=== PATIENT | male | born 1990 | race Asian ===

== ENCOUNTER 2020-03-23 10:22 | Inpatient (IN) | payer SELFPAY ==
--- NOTE | 2020-03-23 12:14 | ER Document Report ---
Entered by AMIRAH CHIN SCRIBE 03/23/20 1133 Acting as scribe for:TOBY FAM MD ED General - General Chief Complaint: Diarrhea Stated Complaint: COUGH,DIARRHEA,HEADACHE Time Seen by Provider: 03/23/20 11:32 Mode of Arrival: Ambulatory Information source: Patient Notes: This 30 year old male patient presents to the ED today for evaluation of symptoms related to COVID-19. Patient reports that he started having symptoms including intermittent fevers, dyspnea on exertion, nonproductive cough, diarrhea TID, and body aches on 03/14, was tested on 03/21 at a local testing site, and was notified of positive results yesterday. He states that the dyspnea and cough have been worse the past x2-3 days. He also notes decreased PO intake due to loss of taste and smell. Denies vomiting. He has only been taking Tylenol and Nyquil for his symptoms per nursing. Denies any past medical/surgical history, medications, or allergies. He admits to vaping, but denies use of tobacco, ETOH, or recreational drugs. 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 Lives with: Spouse/Significant other Family History: Reviewed & Not Pertinent Patient has suicidal ideation: No Patient has homicidal ideation: No - Medical History Medical History: Negative Surgical Hx: Negative Review of Systems - Review of Systems Constitutional: See HPI, Fever, Recent illness - COVID + 03/22 EENT: See HPI, Other - Loss of taste and smell Cardiovascular: See HPI, Dyspnea Respiratory: See HPI, Cough Gastrointestinal: See HPI, Diarrhea, Poor appetite, Poor fluid intake Genitourinary: No symptoms reported Male Genitourinary: No symptoms reported Musculoskeletal: See HPI, Muscle pain Skin: No symptoms reported, Change in color Neurological/Psychological: No symptoms reported -: Yes All other systems reviewed and negative Physical Exam - Vital signs Vitals: Temp Pulse Resp BP Pulse Ox 102.7 F H 85 22 H 102/52 L 93 03/23/20 10:31 03/23/20 10:31 03/23/20 10:31 03/23/20 10:31 03/23/20 10:31 - General General appearance: Alert In distress: None - HEENT Head: Normocephalic, Atraumatic Eyes: Normal Pupils: PERRL - Respiratory Respiratory status: Tachypnea Chest status: Nontender Breath sounds: Other - Coarse breath sounds. No: Rhonchi, Wheezing Chest palpation: Normal - Cardiovascular Rhythm: Regular, Tachycardia Heart sounds: Normal auscultation Murmur: No Friction rub: No Gallop: None auscultated - Abdominal Inspection: Normal Distension: No distension Bowel sounds: Normal Tenderness: Nontender - Abdomen soft Organomegaly: No organomegaly - Back Back: Normal, Nontender - Extremities General upper extremity: Normal inspection General lower extremity: Normal inspection. No: Edema - Neurological Neuro grossly intact: Yes Orientation: AAOx4 [place] Coma Scale Eye Opening: Spontaneous [place] Coma Scale Verbal: Oriented Jake Coma Scale Motor: Obeys Commands [place] Coma Scale Total: 15 - Psychological Associated symptoms: Normal affect, Normal mood - Skin Skin Temperature: Warm Skin Moisture: Dry Skin Color: Normal Course - Re-evaluation Re-evalutation: 03/23/20 14:44 The patient was evaluated during the global COVID-19 pandemic and that diagnosis was suspected/considered upon their initial presentation. Their evaluation, treatment and testing was consistent with current guidelines for patients who present with complaints or symptoms that may be related to COVID-19. - Vital Signs Vital signs: Temp Pulse Resp BP Pulse Ox 101.7 F H 87 20 117/66 96 03/23/20 15:45 03/23/20 14:37 03/23/20 14:37 03/23/20 14:37 03/23/20 14:37 - Laboratory Result Diagrams: 03/23/20 13:42 03/23/20 13:42 Laboratory results interpreted by me: 03/23/20 03/23/20 03/23/20 13:42 13:42 13:42 Seg Neutrophils % 82.1 H D-Dimer 0.90 H Carbonic Acid ABG pH ABG pCO2 ABG pO2 ABG HCO3 ABG O2 Saturation Sodium 136.6 L Calcium 8.3 L Magnesium 2.5 H Ferritin 987.00 H AST 76 H Lactate Dehydrogenase Creatine Kinase 1414 H C-Reactive Protein 53.7 H Urine Protein Urine Ketones Urine Blood 03/23/20 03/23/20 03/23/20 13:42 14:08 14:47 Seg Neutrophils % D-Dimer Carbonic Acid 1.46 H ABG pH 7.34 L ABG pCO2 48.6 H ABG pO2 23.4 L* ABG HCO3 25.4 H ABG O2 Saturation 37.2 L Sodium Calcium Magnesium Ferritin AST Lactate Dehydrogenase 617 H Creatine Kinase C-Reactive Protein Urine Protein >=500 H Urine Ketones 20 H Urine Blood MODERATE H - Diagnostic Test Radiology reviewed: Image reviewed, Reports reviewed - Bilateral lower lobe airspace disease - EKG Interpretation by Ia EKG shows normal: Sinus rhythm, [place], Intervals, QRS Complexes. abnormal: ST-T Waves - Diffuse nonspecific T abnormalities Rate: Normal - 86 Rhythm: NSR - Consults Dr. Jones Time consulted: 16:07 Consulted provider: will come to ER Discharge - Discharge Clinical Impression: Pneumonia due to 2019 novel coronavirus, Hypoxia, Rhabdomyolysis due to COVID- 19, Myoglobinuria Fever Qualifiers: Fever type: unspecified Qualified Code(s): R50.9 - Fever, unspecified Condition: Good Disposition: ADMITTED INPATIENT Admitting Provider: Karen (Hospitalist) Unit Admitted: IMCU I personally performed the services described in the documentation, reviewed and edited the documentation which was dictated to the scribe in my presence, and it accurately records my words and actions.
--- NOTE | 2020-03-23 13:17 | RADIOLOGY REPORT (SQ) ---
EXAM DESCRIPTION: CHEST SINGLE VIEW IMAGES COMPLETED DATE/TIME: 03/23/2020 12:29 pm REASON FOR STUDY: Dyspnea, febrile, COVID positive COMPARISON: None. EXAM PARAMETERS: NUMBER OF VIEWS: One view. TECHNIQUE: Single frontal radiographic view of the chest acquired. RADIATION DOSE: NA LIMITATIONS: None. FINDINGS: LUNGS AND PLEURA: Ill-defined patchy opacification in the lung bases. No pleural effusion . No mass. MEDIASTINUM AND HILAR STRUCTURES: No masses. Contour normal. HEART AND VASCULAR STRUCTURES: Heart normal in size. Normal vasculature. BONES: No acute findings. HARDWARE: None in the chest. OTHER: No other significant finding. IMPRESSION: Bilateral airspace disease consistent with the given history of COVID-19. TECHNICAL DOCUMENTATION: JOB ID: [id number] 2010 [employer]- All Rights Reserved Reading location - IP/workstation name: [email or web address]
[2020-03-23 14:00] LABS: ABSOLUTE LYMPHOCYTES (AUTO) 0.6 10^3/uL (0.5-4.7); ABSOLUTE MONOCYTES (AUTO) 0.2 10^3/uL (0.1-1.4); ABSOLUTE NEUT (AUTO) 3.5 10^3/uL (1.7-8.2); BASOPHILS % (AUTO) 0.2 % (0-2); HEMATOCRIT 45.8 % (37.9-51.0); HEMOGLOBIN 15.8 g/dL (13.5-17.0); LYMPHOCYTES % (AUTO) 13.5 % (13-45); MEAN CORPUSCULAR HEMOGLOBIN 30.1 pg (27.0-33.4); MEAN CORPUSCULAR HGB CONC 34.4 g/dL (32.0-36.0); MEAN CORPUSCULAR VOLUME 87 fl (80-97); MONOCYTES % (AUTO) 4.2 % (3-13); PLATELET COUNT 184 10^3/uL (150-450); RED BLOOD COUNT 5.25 10^6/uL (4.35-5.55); RED CELL DISTRIBUTION WIDTH 13.4 % (11.5-14.0); SEGMENTED NEUTROPHILS % (AUTO) 82.1 % (42-78); TOTAL CELLS COUNTED % (AUTO) 100 %; WHITE BLOOD COUNT 4.3 10^3/uL (4.0-10.5)
[2020-03-23 14:21] LABS: ALBUMIN 4.1 g/dL (3.5-5.0); ALKALINE PHOSPHATASE 40 U/L (38-126); ANION GAP 11 (5-19); ASPARTATE AMINO TRANSFERASE 76 U/L (17-59); BILIRUBIN,DIRECT 0.3 mg/dL (0.0-0.4); BILIRUBIN,TOTAL 0.7 mg/dL (0.2-1.3); BLOOD UREA NITROGEN 17 mg/dL (7-20); C-REACTIVE PROTEIN 53.7 mg/L (<10.0); CALCIUM 8.3 mg/dL (8.4-10.2); CARBON DIOXIDE 26 mmol/L (22-30); CHLORIDE 100 mmol/L (98-107); CREATINE KINASE 1414 U/L (55-170); GLUCOSE 102 mg/dL (75-110); POTASSIUM 3.9 mmol/L (3.6-5.0); TOTAL PROTEIN 7.5 g/dL (6.3-8.2)
[2020-03-23 14:29] LABS: ARTERIAL BLOOD BASE EXCESS -1.1 mmol/L; ARTERIAL BLOOD H2CO3 1.46 mmol/L (1.05-1.35); ARTERIAL BLOOD HCO3 25.4 mmol/L (20-24); ARTERIAL BLOOD O2 SATURATION 37.2 % (94-98); ARTERIAL BLOOD PCO2 48.6 mmHg (35-45); ARTERIAL BLOOD PH 7.34 (7.35-7.45); ARTERIAL BLOOD TOTAL CO2 26.9 mmol/L (23-27)
[2020-03-23 14:34] LABS: ARTERIAL BLOOD FIO2 ROOM AIR
[2020-03-23 14:37] LABS: ARTERIAL BLOOD PO2 23.4 mmHg (80-100)
[2020-03-23] MEDS ORDERED: ACETAMINOPHEN 325 MG TABLET PO ONE (14:41)
[2020-03-23 15:11] LABS: APPEARANCE,URINE SLIGHTLY-CLOUDY; BILIRUBIN,URINE NEGATIVE (NEGATIVE); COLOR,URINE YELLOW; GLUCOSE, URINE NEGATIVE (NEGATIVE); KETONES,URINE 20 mg/dL (NEGATIVE); LEUKOCYTE ESTERASE,URINE NEGATIVE (NEGATIVE); NITRITE,URINE NEGATIVE (NEGATIVE); PROTEIN,URINE >=500 mg/dL (NEGATIVE); URINE SPECIFIC GRAVITY 1.027; UROBILINOGEN,URINE NEGATIVE mg/dL (<2.0)
[2020-03-23] MEDS: RINGERS SOLUTION,LACTATED 1,000 ML IV PRN ×2 (15:33→20:45)
[2020-03-23] MEDS ORDERED: IPRATROPIUM/ALBUTEROL 0.5-2.5 MG/3 ML AMPUL NEB PRN (17:30)
[2020-03-23] MEDS ORDERED: ACETAMINOPHEN 325 MG TABLET PO PRN (17:30)
[2020-03-23] MEDS ORDERED: TEMAZEPAM 7.5 MG CAPSULE PO PRN (17:30)
[2020-03-23] MEDS ORDERED: ONDANSETRON HCL INJ/PF 4 MG/2 ML SDV IV PRN (17:30)
[2020-03-23] MEDS ORDERED: PROMETHAZINE HCL INJ 25 MG/1 ML VIAL IV PRN (17:30)
--- NOTE | 2020-03-23 18:11 | PDOC H&P ---
History of Present Illness Admission Date/PCP: 03/23/20 16:45 History of Present Illness: CHALINO KRUEGER is a 30 year old male no significant past medical history, who has a vaping shop and also vaping himself, presenting to ED complaining of worsening shortness of breath. Patient is stating that about 10 days ago he was febrile and thought he had COVID-19 and he started isolating himself, as his symptoms did not improve he called [facility] and he was instructed to get tested for COVID-19. Patient got tested for COVID-19 3 days ago which came back positive yesterday. Patient complaining of worsening shortness of breath, associated with loss of smell and loss of taste, low appetite, nonproductive cough, pleuritic chest pain, and subjective fever, nonbloody diarrhea, denies any headache, focal neurological symptoms urinary symptoms. In ED chest x-ray was positive for COVID-19 findings, D-dimer mildly elevated, severely elevated ferritin, LDH, CRP and CK. Normal troponin. An ABG was attempted but turned out to be a VBG with pH of 7.34, PCO2 48.6, PO2 23.4. Social History Lives with: Spouse/Significant other Smoking Status: Never Smoker Family History Family History: Reviewed & Not Pertinent Parental Family History Reviewed: Yes Children Family History Reviewed: Yes Sibling(s) Family History Reviewed.: Yes Medication/Allergy Allergies/Adverse Reactions: No Known Allergies Allergy (Unverified 03/23/20 14:53) Review of Systems Review of Systems: as per hpi Physical Exam Vital Signs: Temp Pulse Resp BP Pulse Ox 99.9 F 86 20 111/58 L 97 03/23/20 16:38 03/23/20 16:38 03/23/20 16:38 03/23/20 16:38 03/23/20 16:38 Intake & Output 03/22/20 03/23/20 03/24/20 06:59 06:59 06:59 Intake Total 1000 Balance 1000 Weight 75.75 kg General appearance: PRESENT: mild distress, well-developed, well-nourished Head exam: PRESENT: atraumatic, normocephalic Respiratory exam: PRESENT: clear to auscultation jensen, tachypnea. ABSENT: rales, rhonchi, wheezes Cardiovascular exam: PRESENT: RRR. ABSENT: diastolic murmur, rubs, systolic murmur GI/Abdominal exam: PRESENT: normal bowel sounds, soft. ABSENT: distended, guarding, mass, organolmegaly, rebound, tenderness Neurological exam: PRESENT: alert, awake, oriented to person, oriented to place, oriented to time, oriented to situation, CN II-XII grossly intact. ABSENT: motor sensory deficit Skin exam: PRESENT: dry, intact, warm. ABSENT: cyanosis, rash Results Laboratory Results: 03/23/20 13:42 03/23/20 13:42 03/23/20 03/23/20 03/23/20 13:42 13:42 14:08 WBC 4.3 RBC 5.25 Hgb 15.8 Hct 45.8 MCV 87 MCH 30.1 MCHC 34.4 RDW 13.4 Plt Count 184 Seg Neutrophils % 82.1 H Carbonic Acid 1.46 H HCO3/H2CO3 Ratio 17:1 ABG pH 7.34 L ABG pCO2 48.6 H ABG pO2 23.4 L* ABG HCO3 25.4 H ABG O2 Saturation 37.2 L ABG Base Excess -1.1 FiO2 ROOM AIR Sodium 136.6 L Potassium 3.9 Chloride 100 Carbon Dioxide 26 Anion Gap 11 BUN 17 Creatinine 1.03 Est GFR ( Amer) > 60 Glucose 102 Calcium 8.3 L Magnesium 2.5 H Ferritin 987.00 H Total Bilirubin 0.7 AST 76 H Alkaline Phosphatase 40 C-Reactive Protein 53.7 H Total Protein 7.5 Albumin 4.1 Urine Color Urine Appearance Urine pH Ur Specific [place] Urine Protein Urine Glucose (UA) Urine Ketones Urine Blood Urine Nitrite Ur Leukocyte Esterase Urine WBC (Auto) Urine RBC (Auto) 03/23/20 14:47 WBC RBC Hgb Hct MCV MCH MCHC RDW Plt Count Seg Neutrophils % Carbonic Acid HCO3/H2CO3 Ratio ABG pH ABG pCO2 ABG pO2 ABG HCO3 ABG O2 Saturation ABG Base Excess FiO2 Sodium Potassium Chloride Carbon Dioxide Anion Gap BUN Creatinine Est GFR ( Amer) Glucose Calcium Magnesium Ferritin Total Bilirubin AST Alkaline Phosphatase C-Reactive Protein Total Protein Albumin Urine Color YELLOW Urine Appearance SLIGHTLY-CLOUDY Urine pH 6.0 Ur Specific [place] 1.027 Urine Protein >=500 H Urine Glucose (UA) NEGATIVE Urine Ketones 20 H Urine Blood MODERATE H Urine Nitrite NEGATIVE Ur Leukocyte Esterase NEGATIVE Urine WBC (Auto) 5 Urine RBC (Auto) 6 03/23/20 03/23/20 13:42 13:42 Creatine Kinase 1414 H Troponin I < 0.012 Impressions: Chest X-Ray 03/23/20 11:45 IMPRESSION: Bilateral airspace disease consistent with the given history of COVID-19. Assessment and Plan - Diagnosis (1) Acute respiratory failure with hypoxia Is this a current diagnosis for this admission?: Yes Plan: Most likely to underlying COVID-19 infection. Patient may have had Edita use due to history of vaping. Admit to IMCU, PRN BiPAP, scheduled duo nebs, incentive spirometry, flutter valve, empiric broad-spectrum IV antibiotics, anticoagulation, steroids, pulmonary toileting, sputum and blood culture. (2) Pneumonia due to COVID-19 virus Is this a current diagnosis for this admission?: Yes Plan: As per above. (3) Rhabdomyolysis due to COVID-19 Is this a current diagnosis for this admission?: Yes Plan: Denies any history of recreational drug abuse. Positive for COVID-19 infection. Urine drug tox pending. Volume restriction guided by volume status. CK level tomorrow. - Time Time Spent with patient: 35 or more minutes Medications reviewed and adjusted accordingly: Yes Anticipated Discharge Disposition: Home, Self Care Anticipated Discharge Timeframe: within 72 hours
[2020-03-23] MEDS: ZINC SULFATE 220 MG CAPSULE PO SCH (18:45)
[2020-03-23] MEDS: ASCORBIC ACID 500 MG TABLET PO SCH (18:45)
[2020-03-23] MEDS: CEFTRIAXONE 1 GM/D5W RTU 1 GM/50 ML RTUPB IV SCH (19:33)
[2020-03-23] MEDS: AZITHROMYCIN 500 MG in DEXTROSE 5%-WATER 250 ML IV SCH (20:57)
[2020-03-23] MEDS: IPRATROPIUM/ALBUTEROL 0.5-2.5 MG/3 ML AMPUL NEB SCH (21:08)
[2020-03-23] MEDS: ENOXAPARIN SODIUM INJ 80 MG/0.8 ML DISP.SYRIN SUBCUT SCH (21:50)
[2020-03-23] MEDS: FAMOTIDINE INJ/PF 20 MG/2 ML SDV IV SCH (21:50)
[2020-03-23] MEDS: DEXAMETHASONE 4 MG TABLET PO SCH (21:50)
[2020-03-24] MEDS: DEXAMETHASONE 4 MG TABLET PO SCH ×3 (06:01→22:51)
[2020-03-24] MEDS: NORMAL SALINE 1000 ML 1,000 ML IV PRN ×2 (06:03→13:53)
[2020-03-24] MEDS: IPRATROPIUM/ALBUTEROL 0.5-2.5 MG/3 ML AMPUL NEB SCH ×3 (08:16→21:59)
[2020-03-24 08:28] LABS: ABSOLUTE LYMPHOCYTES (AUTO) 0.6 10^3/uL (0.5-4.7); ABSOLUTE MONOCYTES (AUTO) 0.2 10^3/uL (0.1-1.4); ABSOLUTE NEUT (AUTO) 4.1 10^3/uL (1.7-8.2); HEMATOCRIT 41.5 % (37.9-51.0); HEMOGLOBIN 14.6 g/dL (13.5-17.0); LYMPHOCYTES % (AUTO) 11.8 % (13-45); MEAN CORPUSCULAR HEMOGLOBIN 30.5 pg (27.0-33.4); MEAN CORPUSCULAR HGB CONC 35.2 g/dL (32.0-36.0); MEAN CORPUSCULAR VOLUME 87 fl (80-97); MONOCYTES % (AUTO) 3.5 % (3-13); PLATELET COUNT 192 10^3/uL (150-450); RED BLOOD COUNT 4.78 10^6/uL (4.35-5.55); RED CELL DISTRIBUTION WIDTH 13.5 % (11.5-14.0); SEGMENTED NEUTROPHILS % (AUTO) 84.7 % (42-78); TOTAL CELLS COUNTED % (AUTO) 100 %; WHITE BLOOD COUNT 4.8 10^3/uL (4.0-10.5)
[2020-03-24 08:34] LABS: ARTERIAL BLOOD BASE EXCESS -2.1 mmol/L; ARTERIAL BLOOD H2CO3 1.04 mmol/L (1.05-1.35); ARTERIAL BLOOD HCO3 21.8 mmol/L (20-24); ARTERIAL BLOOD O2 SATURATION 94.1 % (94-98); ARTERIAL BLOOD PCO2 34.7 mmHg (35-45); ARTERIAL BLOOD PH 7.42 (7.35-7.45); ARTERIAL BLOOD PO2 68.5 mmHg (80-100); ARTERIAL BLOOD TOTAL CO2 22.8 mmol/L (23-27)
[2020-03-24 08:40] LABS: ARTERIAL BLOOD FIO2 32%
[2020-03-24 08:45] LABS: INTERNATIONAL RATION (INR) 1.02; PROTHROMBIN TIME 13.6 SEC (11.4-15.4)
[2020-03-24 08:55] LABS: ALBUMIN 3.2 g/dL (3.5-5.0); ALKALINE PHOSPHATASE 35 U/L (38-126); ANION GAP 11 (5-19); ASPARTATE AMINO TRANSFERASE 72 U/L (17-59); BILIRUBIN,DIRECT 0.3 mg/dL (0.0-0.4); BILIRUBIN,TOTAL 0.6 mg/dL (0.2-1.3); BLOOD UREA NITROGEN 12 mg/dL (7-20); CALCIUM 7.8 mg/dL (8.4-10.2); CARBON DIOXIDE 24 mmol/L (22-30); CHLORIDE 105 mmol/L (98-107); GLUCOSE 107 mg/dL (75-110); POTASSIUM 3.9 mmol/L (3.6-5.0); TOTAL PROTEIN 6.2 g/dL (6.3-8.2)
--- NOTE | 2020-03-24 08:58 | EKG REPORT ---
SEVERITY:- ABNORMAL ECG - SINUS RHYTHM NONSPECIFIC T ABNORMALITIES, DIFFUSE LEADS : Confirmed by: Kiki Diez MD 24-Mar-2020 08:58:03
[2020-03-24] MEDS: ASCORBIC ACID 500 MG TABLET PO SCH ×2 (09:14→17:09)
[2020-03-24] MEDS: ZINC SULFATE 220 MG CAPSULE PO SCH (09:14)
[2020-03-24] MEDS: FAMOTIDINE INJ/PF 20 MG/2 ML SDV IV SCH ×2 (09:14→22:51)
[2020-03-24] MEDS: ENOXAPARIN SODIUM INJ 80 MG/0.8 ML DISP.SYRIN SUBCUT SCH ×2 (09:16→22:51)
[2020-03-24] MEDS ORDERED: REMDESIVIR (EUA) 200 MG in NORMAL SALINE 250 ML IV ONE (10:00)
--- NOTE | 2020-03-24 11:50 | PDOC PROGRESS REPORT ---
Subjective Progress Note for:: 03/24/20 Subjective:: CHALINO KRUEGER is a 30 year old male no significant past medical history, who has a vaping shop and also vaping himself, presenting to ED complaining of worsening shortness of breath. Patient is stating that about 10 days ago he was febrile and thought he had COVID-19 and he started isolating himself, as his symptoms did not improve he called [facility] and he was instructed to get tested for COVID-19. Patient got tested for COVID-19 3 days ago which came back positive yesterday. Patient complaining of worsening shortness of breath, associated with loss of smell and loss of taste, low appetite, nonproductive cough, pleuritic chest pain, and subjective fever, nonbloody diarrhea, denies any headache, focal neurological symptoms urinary symptoms. In ED chest x-ray was positive for COVID-19 findings, D-dimer mildly elevated, severely elevated ferritin, LDH, CRP and CK. Normal troponin. An ABG was attempted but turned out to be a VBG with pH of 7.34, PCO2 48.6, PO2 23.4. 03/24/2020. Moderate improvement of subdural associated, still having loss of smell and diarrhea, shortness of breath improving, denies any fever, chills, nausea, vomiting, constipation or any urinary symptoms. Reason For Visit: COVID-19, PNEUMONIA Physical Exam Vital Signs: Temp Pulse Resp BP Pulse Ox 98.5 F 73 24 H 108/68 95 03/24/20 10:00 03/24/20 08:15 03/24/20 08:15 03/24/20 07:44 03/24/20 08:15 Intake & Output 03/23/20 03/24/20 03/25/20 06:59 06:59 06:59 Intake Total 1050 Output Total 700 Balance 350 Weight 75.7 kg General appearance: PRESENT: no acute distress, mild distress, well-developed, well-nourished Head exam: PRESENT: atraumatic, normocephalic Neck exam: ABSENT: carotid bruit, JVD, lymphadenopathy, thyromegaly Respiratory exam: PRESENT: clear to auscultation jensen, tachypnea. ABSENT: rales, rhonchi, wheezes Cardiovascular exam: PRESENT: RRR. ABSENT: diastolic murmur, rubs, systolic murmur GI/Abdominal exam: PRESENT: normal bowel sounds, soft. ABSENT: distended, guard ing, mass, organolmegaly, rebound, tenderness Neurological exam: PRESENT: alert, awake, oriented to person, oriented to place, oriented to time, oriented to situation, CN II-XII grossly intact. ABSENT: motor sensory deficit Results Laboratory Results: 03/24/20 07:15 03/24/20 07:15 03/23/20 03/23/20 03/23/20 13:42 13:42 14:08 WBC 4.3 RBC 5.25 Hgb 15.8 Hct 45.8 MCV 87 MCH 30.1 MCHC 34.4 RDW 13.4 Plt Count 184 Seg Neutrophils % 82.1 H Carbonic Acid 1.46 H HCO3/H2CO3 Ratio 17:1 ABG pH 7.34 L ABG pCO2 48.6 H ABG pO2 23.4 L* ABG HCO3 25.4 H ABG O2 Saturation 37.2 L ABG Base Excess -1.1 FiO2 ROOM AIR Sodium 136.6 L Potassium 3.9 Chloride 100 Carbon Dioxide 26 Anion Gap 11 BUN 17 Creatinine 1.03 Est GFR ( Amer) > 60 Glucose 102 Calcium 8.3 L Magnesium 2.5 H Ferritin 987.00 H Total Bilirubin 0.7 AST 76 H Alkaline Phosphatase 40 C-Reactive Protein 53.7 H Total Protein 7.5 Albumin 4.1 Urine Color Urine Appearance Urine pH Ur Specific [place] Urine Protein Urine Glucose (UA) Urine Ketones Urine Blood Urine Nitrite Ur Leukocyte Esterase Urine WBC (Auto) Urine RBC (Auto) 03/23/20 03/24/20 03/24/20 14:47 07:15 07:15 WBC 4.8 RBC 4.78 Hgb 14.6 Hct 41.5 MCV 87 MCH 30.5 MCHC 35.2 RDW 13.5 Plt Count 192 Seg Neutrophils % 84.7 H Carbonic Acid HCO3/H2CO3 Ratio ABG pH ABG pCO2 ABG pO2 ABG HCO3 ABG O2 Saturation ABG Base Excess FiO2 Sodium 139.6 Potassium 3.9 Chloride 105 Carbon Dioxide 24 Anion Gap 11 BUN 12 Creatinine 0.87 Est GFR ( Amer) > 60 Glucose 107 Calcium 7.8 L Magnesium 2.4 H Ferritin Total Bilirubin 0.6 AST 72 H Alkaline Phosphatase 35 L C-Reactive Protein Total Protein 6.2 L Albumin 3.2 L Urine Color YELLOW Urine Appearance SLIGHTLY-CLOUDY Urine pH 6.0 Ur Specific [place] 1.027 Urine Protein >=500 H Urine Glucose (UA) NEGATIVE Urine Ketones 20 H Urine Blood MODERATE H Urine Nitrite NEGATIVE Ur Leukocyte Esterase NEGATIVE Urine WBC (Auto) 5 Urine RBC (Auto) 6 03/24/20 08:15 WBC RBC Hgb Hct MCV MCH MCHC RDW Plt Count Seg Neutrophils % Carbonic Acid 1.04 L HCO3/H2CO3 Ratio 20:1 ABG pH 7.42 ABG pCO2 34.7 L ABG pO2 68.5 L ABG HCO3 21.8 ABG O2 Saturation 94.1 ABG Base Excess -2.1 FiO2 32% Sodium Potassium Chloride Carbon Dioxide Anion Gap BUN Creatinine Est GFR ( Amer) Glucose Calcium Magnesium Ferritin Total Bilirubin AST Alkaline Phosphatase C-Reactive Protein Total Protein Albumin Urine Color Urine Appearance Urine pH Ur Specific [place] Urine Protein Urine Glucose (UA) Urine Ketones Urine Blood Urine Nitrite Ur Leukocyte Esterase Urine WBC (Auto) Urine RBC (Auto) 03/23/20 03/23/20 13:42 13:42 Creatine Kinase 1414 H Troponin I < 0.012 Impressions: Chest X-Ray 03/23/20 11:45 IMPRESSION: Bilateral airspace disease consistent with the given history of COVID-19. Assessment and Plan - Diagnosis (1) Acute respiratory failure with hypoxia Is this a current diagnosis for this admission?: Yes Plan: Most likely to underlying COVID-19 infection. Patient may have underlying lung disease due to history of vaping. Afebrile, SPO2 WNL on 3 L nasal cannula. ABG shows mild improvement of hypoxemia. Due 2 IV antibiotics. Day 2 IV ceftriaxone. Day 2 IV azithromycin. DT p.o. steroids. Day 1 IV remdisivir. Continue PRN BiPAP, scheduled duo nebs, incentive spirometry, flutter valve, empiric broad-spectrum IV antibiotics, anticoagulation, steroids, pulmonary toileting, sputum and blood culture. (2) Pneumonia due to COVID-19 virus Is this a current diagnosis for this admission?: Yes Plan: As per above. (3) Rhabdomyolysis due to COVID-19 Is this a current diagnosis for this admission?: Yes Plan: Denies any history of recreational drug abuse. Positive for COVID-19 infection. Urine drug tox pending. Volume restriction guided by volume status. CK level tomorrow. - Time Time Spent with patient: 35 or more minutes Medications reviewed and adjusted accordingly: Yes Anticipated Discharge Disposition: Home with Home Health Anticipated Discharge Timeframe: within 72 hours
[2020-03-24] MEDS ORDERED: CALCIUM GLUCONATE 1000 MG/10 ML INJ IV ONE (13:30)
[2020-03-24 15:34] LABS: URINE AMPHETAMINES SCREEN NEGATIVE; URINE BARBITURATES SCREEN NEGATIVE; URINE BENZODIAZEPINES SCREEN NEGATIVE; URINE COCAINE SCREEN NEGATIVE; URINE MARIJUANA (THC) SCREEN NEGATIVE; URINE METHADONE SCREEN NEGATIVE; URINE PHENCYCLIDINE SCREEN NEGATIVE
[2020-03-24] MEDS ORDERED: CALCIUM GLUCONATE 1 GM/NS 50 ML RTU IV ONE (17:00)
[2020-03-24] MEDS: CEFTRIAXONE 1 GM/D5W RTU 1 GM/50 ML RTUPB IV SCH (17:09)
[2020-03-24] MEDS: AZITHROMYCIN 500 MG in DEXTROSE 5%-WATER 250 ML IV SCH (22:51)
[2020-03-25] MEDS: DEXAMETHASONE 4 MG TABLET PO SCH ×3 (05:10→23:03)
[2020-03-25 05:23] LABS: HEMATOCRIT 40.5 % (37.9-51.0); HEMOGLOBIN 14.3 g/dL (13.5-17.0); MEAN CORPUSCULAR HEMOGLOBIN 30.5 pg (27.0-33.4); MEAN CORPUSCULAR HGB CONC 35.2 g/dL (32.0-36.0); MEAN CORPUSCULAR VOLUME 87 fl (80-97); PLATELET COUNT 207 10^3/uL (150-450); RED BLOOD COUNT 4.68 10^6/uL (4.35-5.55); RED CELL DISTRIBUTION WIDTH 13.4 % (11.5-14.0); WHITE BLOOD COUNT 7.2 10^3/uL (4.0-10.5)
[2020-03-25 05:26] LABS: INTERNATIONAL RATION (INR) 1.08; PROTHROMBIN TIME 14.2 SEC (11.4-15.4)
[2020-03-25 05:48] LABS: ALBUMIN 2.9 g/dL (3.5-5.0); ALKALINE PHOSPHATASE 33 U/L (38-126); ANION GAP 7 (5-19); ASPARTATE AMINO TRANSFERASE 68 U/L (17-59); BILIRUBIN,DIRECT 0.2 mg/dL (0.0-0.4); BILIRUBIN,TOTAL 0.5 mg/dL (0.2-1.3); BLOOD UREA NITROGEN 14 mg/dL (7-20); CALCIUM 7.7 mg/dL (8.4-10.2); CARBON DIOXIDE 24 mmol/L (22-30); CHLORIDE 108 mmol/L (98-107); GLUCOSE 125 mg/dL (75-110); POTASSIUM 3.8 mmol/L (3.6-5.0); TOTAL PROTEIN 5.7 g/dL (6.3-8.2)
[2020-03-25 07:10] LABS: ARTERIAL BLOOD H2CO3 1.11 mmol/L (1.05-1.35); ARTERIAL BLOOD HCO3 23.1 mmol/L (20-24); ARTERIAL BLOOD O2 SATURATION 95.4 % (94-98); ARTERIAL BLOOD PCO2 36.8 mmHg (35-45); ARTERIAL BLOOD PH 7.42 (7.35-7.45); ARTERIAL BLOOD PO2 75.6 mmHg (80-100); ARTERIAL BLOOD TOTAL CO2 24.2 mmol/L (23-27)
[2020-03-25 07:41] LABS: ARTERIAL BLOOD FIO2 36%
[2020-03-25] MEDS: IPRATROPIUM/ALBUTEROL 0.5-2.5 MG/3 ML AMPUL NEB SCH ×3 (08:04→20:54)
[2020-03-25 08:23] LABS: APPEARANCE,URINE CLEAR; BILIRUBIN,URINE NEGATIVE (NEGATIVE); COLOR,URINE YELLOW; GLUCOSE, URINE NEGATIVE (NEGATIVE); KETONES,URINE TRACE mg/dL (NEGATIVE); LEUKOCYTE ESTERASE,URINE NEGATIVE (NEGATIVE); NITRITE,URINE NEGATIVE (NEGATIVE); PROTEIN,URINE 100 mg/dL (NEGATIVE); URINE SPECIFIC GRAVITY 1.013; UROBILINOGEN,URINE NEGATIVE mg/dL (<2.0)
[2020-03-25] MEDS: ZINC SULFATE 220 MG CAPSULE PO SCH (10:02)
[2020-03-25] MEDS: REMDESIVIR (EUA) 100 MG in NORMAL SALINE 250 ML IV SCH (10:02)
[2020-03-25] MEDS: FAMOTIDINE INJ/PF 20 MG/2 ML SDV IV SCH ×2 (10:02→23:03)
[2020-03-25] MEDS: NORMAL SALINE 1000 ML 1,000 ML IV PRN (10:02)
[2020-03-25] MEDS: ASCORBIC ACID 500 MG TABLET PO SCH ×2 (10:02→17:12)
[2020-03-25] MEDS: ENOXAPARIN SODIUM INJ 80 MG/0.8 ML DISP.SYRIN SUBCUT SCH ×2 (10:02→23:04)
--- NOTE | 2020-03-25 12:36 | PDOC PROGRESS REPORT ---
Subjective Progress Note for:: 03/25/20 Subjective:: CHALINO KRUEGER is a 30 year old male no significant past medical history, who has a vaping shop and also vaping himself, presenting to ED complaining of worsening shortness of breath. Patient is stating that about 10 days ago he was febrile and thought he had COVID-19 and he started isolating himself, as his symptoms did not improve he called [facility] and he was instructed to get tested for COVID-19. Patient got tested for COVID-19 3 days ago which came back positive yesterday. Patient complaining of worsening shortness of breath, associated with loss of smell and loss of taste, low appetite, nonproductive cough, pleuritic chest pain, and subjective fever, nonbloody diarrhea, denies any headache, focal neurological symptoms urinary symptoms. In ED chest x-ray was positive for COVID-19 findings, D-dimer mildly elevated, severely elevated ferritin, LDH, CRP and CK. Normal troponin. An ABG was attempted but turned out to be a VBG with pH of 7.34, PCO2 48.6, PO2 23.4. 03/24/2020. Moderate improvement of subdural associated, still having loss of smell and diarrhea, shortness of breath improving, denies any fever, chills, nausea, vomiting, constipation or any urinary symptoms. 03/25/2020. No acute events overnight, patient reported having of night, could not get a good sleep, normal catheter sitting ability of the bed seems to be normal respiratory distress, cannot talk in full sentences, denies any fever, chills, nausea still having diarrhea, denies any chest pain, abdominal pain or any urinary symptoms. Reason For Visit: COVID-19, PNEUMONIA Physical Exam Vital Signs: Temp Pulse Resp BP Pulse Ox 99.0 F 59 L 22 H 106/55 L 91 L 03/25/20 07:42 03/25/20 07:42 03/25/20 07:42 03/25/20 07:42 03/25/20 07:42 Intake & Output 03/24/20 03/25/20 03/26/20 06:59 06:59 06:59 Intake Total 1300 2357 550 Output Total 700 300 Balance 600 2057 550 Weight 75.7 kg 76.2 kg General appearance: PRESENT: mild distress Head exam: PRESENT: atraumatic, normocephalic Respiratory exam: PRESENT: clear to auscultation jensen, symmetrical, tachypnea. ABSENT: rales, rhonchi, wheezes Cardiovascular exam: PRESENT: RRR. ABSENT: diastolic murmur, rubs, systolic murmur GI/Abdominal exam: PRESENT: normal bowel sounds, soft. ABSENT: distended, guarding, mass, organolmegaly, rebound, tenderness Neurological exam: PRESENT: alert, awake, oriented to person, oriented to place, oriented to time, oriented to situation, CN II-XII grossly intact. ABSENT: motor sensory deficit Results Laboratory Results: 03/25/20 05:07 03/25/20 05:07 03/25/20 03/25/20 03/25/20 05:07 05:07 06:30 WBC 7.2 RBC 4.68 Hgb 14.3 Hct 40.5 MCV 87 MCH 30.5 MCHC 35.2 RDW 13.4 Plt Count 207 Carbonic Acid 1.11 HCO3/H2CO3 Ratio 20:1 ABG pH 7.42 ABG pCO2 36.8 ABG pO2 75.6 L ABG HCO3 23.1 ABG O2 Saturation 95.4 ABG Base Excess -1.0 FiO2 36% Sodium 138.5 Potassium 3.8 Chloride 108 H Carbon Dioxide 24 Anion Gap 7 BUN 14 Creatinine 0.74 Est GFR ( Amer) > 60 Glucose 125 H Calcium 7.7 L Total Bilirubin 0.5 AST 68 H Alkaline Phosphatase 33 L Total Protein 5.7 L Albumin 2.9 L Urine Color Urine Appearance Urine pH Ur Specific [place] Urine Protein Urine Glucose (UA) Urine Ketones Urine Blood Urine Nitrite Ur Leukocyte Esterase Urine WBC (Auto) Urine RBC (Auto) 03/25/20 07:45 WBC RBC Hgb Hct MCV MCH MCHC RDW Plt Count Carbonic Acid HCO3/H2CO3 Ratio ABG pH ABG pCO2 ABG pO2 ABG HCO3 ABG O2 Saturation ABG Base Excess FiO2 Sodium Potassium Chloride Carbon Dioxide Anion Gap BUN Creatinine Est GFR ( Amer) Glucose Calcium Total Bilirubin AST Alkaline Phosphatase Total Protein Albumin Urine Color YELLOW Urine Appearance CLEAR Urine pH 7.0 Ur Specific [place] 1.013 Urine Protein 100 H Urine Glucose (UA) NEGATIVE Urine Ketones TRACE H Urine Blood SMALL H Urine Nitrite NEGATIVE Ur Leukocyte Esterase NEGATIVE Urine WBC (Auto) 0 Urine RBC (Auto) 1 03/23/20 03/23/20 03/24/20 13:42 13:42 13:00 Creatine Kinase 1414 H 2115 H Troponin I < 0.012 Impressions: Chest X-Ray 03/23/20 11:45 IMPRESSION: Bilateral airspace disease consistent with the given history of COVID-19. Assessment and Plan - Diagnosis (1) Acute respiratory failure with hypoxia Is this a current diagnosis for this admission?: Yes Plan: Most likely to underlying COVID-19 infection. Patient may have underlying lung disease due to history of vaping. Afebrile, SPO2 WNL on 3 L nasal cannula. ABG shows mild improvement of hypoxemia. Due 3 IV antibiotics. Day 3 IV ceftriaxone. Day 3 IV azithromycin. Day 3 p.o. steroids. Day 2 IV remdesivir. Continue PRN BiPAP, scheduled duo nebs, incentive spirometry, flutter valve, empiric broad-spectrum IV antibiotics, anticoagulation, steroids, pulmonary toileting, sputum and blood culture. (2) Pneumonia due to COVID-19 virus Is this a current diagnosis for this admission?: Yes Plan: As per above. (3) Rhabdomyolysis due to COVID-19 Is this a current diagnosis for this admission?: Yes Plan: Denies any history of recreational drug abuse. Positive for COVID-19 infection. Urine drug tox pending. Volume restriction guided by volume status. CK level tomorrow. - Time Time Spent with patient: 25-34 minutes Smoking Cessation Education: 3 to 10 minutes Medications reviewed and adjusted accordingly: Yes Anticipated Discharge Disposition: Home, Self Care Anticipated Discharge Timeframe: within 48 hours
[2020-03-25] MEDS: CEFTRIAXONE 1 GM/D5W RTU 1 GM/50 ML RTUPB IV SCH (17:12)
[2020-03-25] MEDS: AZITHROMYCIN 500 MG in DEXTROSE 5%-WATER 250 ML IV SCH (23:03)
[2020-03-26] MEDS: DEXAMETHASONE 4 MG TABLET PO SCH ×3 (05:53→22:21)
[2020-03-26] MEDS: IPRATROPIUM/ALBUTEROL 0.5-2.5 MG/3 ML AMPUL NEB SCH ×3 (07:41→21:05)
[2020-03-26 07:55] LABS: ABSOLUTE LYMPHOCYTES (AUTO) 0.5 10^3/uL (0.5-4.7); ABSOLUTE MONOCYTES (AUTO) 0.3 10^3/uL (0.1-1.4); ABSOLUTE NEUT (AUTO) 5.2 10^3/uL (1.7-8.2); BASOPHILS % (AUTO) 0.1 % (0-2); HEMATOCRIT 43.8 % (37.9-51.0); HEMOGLOBIN 15.1 g/dL (13.5-17.0); LYMPHOCYTES % (AUTO) 8.2 % (13-45); MEAN CORPUSCULAR HEMOGLOBIN 30.1 pg (27.0-33.4); MEAN CORPUSCULAR HGB CONC 34.4 g/dL (32.0-36.0); MEAN CORPUSCULAR VOLUME 88 fl (80-97); MONOCYTES % (AUTO) 4.5 % (3-13); PLATELET COUNT 255 10^3/uL (150-450); RED BLOOD COUNT 5.01 10^6/uL (4.35-5.55); RED CELL DISTRIBUTION WIDTH 13.7 % (11.5-14.0); SEGMENTED NEUTROPHILS % (AUTO) 87.2 % (42-78); TOTAL CELLS COUNTED % (AUTO) 100 %
[2020-03-26] MEDS ORDERED: NORMAL SALINE 1000 ML 1,000 ML IV PRN (07:56)
[2020-03-26 08:14] LABS: INTERNATIONAL RATION (INR) 1.05
[2020-03-26 08:24] LABS: ALKALINE PHOSPHATASE 36 U/L (38-126); ANION GAP 8 (5-19); ASPARTATE AMINO TRANSFERASE 43 U/L (17-59); BILIRUBIN,DIRECT 0.2 mg/dL (0.0-0.4); BILIRUBIN,TOTAL 0.5 mg/dL (0.2-1.3); BLOOD UREA NITROGEN 14 mg/dL (7-20); CALCIUM 7.8 mg/dL (8.4-10.2); CARBON DIOXIDE 26 mmol/L (22-30); CHLORIDE 107 mmol/L (98-107); GLUCOSE 131 mg/dL (75-110); POTASSIUM 4.2 mmol/L (3.6-5.0); TOTAL PROTEIN 5.9 g/dL (6.3-8.2)
[2020-03-26] MEDS: ASCORBIC ACID 500 MG TABLET PO SCH ×2 (10:09→17:37)
[2020-03-26] MEDS: FAMOTIDINE INJ/PF 20 MG/2 ML SDV IV SCH ×2 (10:09→22:21)
[2020-03-26] MEDS: ENOXAPARIN SODIUM INJ 80 MG/0.8 ML DISP.SYRIN SUBCUT SCH ×2 (10:09→22:21)
[2020-03-26] MEDS: ZINC SULFATE 220 MG CAPSULE PO SCH (10:09)
[2020-03-26] MEDS: REMDESIVIR (EUA) 100 MG in NORMAL SALINE 250 ML IV SCH (10:09)
[2020-03-26] MEDS: GUAIFENESIN SYRP 200 MG/10 ML UDC PO PRN ×2 (11:09→17:37)
--- NOTE | 2020-03-26 13:25 | PDOC PROGRESS REPORT ---
Subjective Progress Note for:: 03/26/20 Subjective:: CHALINO KRUEGER is a 30 year old male no significant past medical history, who has a vaping shop and also vaping himself, presenting to ED complaining of worsening shortness of breath. Patient is stating that about 10 days ago he was febrile and thought he had COVID-19 and he started isolating himself, as his symptoms did not improve he called [facility] and he was instructed to get tested for COVID-19. Patient got tested for COVID-19 3 days ago which came back positive yesterday. Patient complaining of worsening shortness of breath, associated with loss of smell and loss of taste, low appetite, nonproductive cough, pleuritic chest pain, and subjective fever, nonbloody diarrhea, denies any headache, focal neurological symptoms urinary symptoms. In ED chest x-ray was positive for COVID-19 findings, D-dimer mildly elevated, severely elevated ferritin, LDH, CRP and CK. Normal troponin. An ABG was attempted but turned out to be a VBG with pH of 7.34, PCO2 48.6, PO2 23.4. 03/24/2020. Moderate improvement of subdural associated, still having loss of smell and diarrhea, shortness of breath improving, denies any fever, chills, nausea, vomiting, constipation or any urinary symptoms. 03/25/2020. No acute events overnight, patient reported having of night, could not get a good sleep, normal catheter sitting ability of the bed seems to be normal respiratory distress, cannot talk in full sentences, denies any fever, chills, nausea still having diarrhea, denies any chest pain, abdominal pain or any urinary symptoms. 03/26/2020. No acute events overnight. Patient is reporting mild improvement of his symptoms, however still feels short of breath and having persistent cough, speaking full sentences, denies any fever, chills, nausea, vomiting. Diarrhea has resolved. Reason For Visit: COVID-19, PNEUMONIA Physical Exam Vital Signs: Temp Pulse Resp BP Pulse Ox 98.2 F 61 18 103/58 L 97 03/26/20 11:01 03/26/20 11:01 03/26/20 11:01 03/26/20 11:01 03/26/20 11:01 Intake & Output 03/25/20 03/26/20 03/27/20 06:59 06:59 06:59 Intake Total 2357 1850 250 Output Total 300 1150 Balance 7 700 250 Weight 76.2 kg 76.2 kg General appearance: PRESENT: no acute distress, well-developed, well-nourished Head exam: PRESENT: atraumatic, normocephalic Respiratory exam: PRESENT: clear to auscultation jensen, tachypnea, other - Shallow breathing. ABSENT: rales, rhonchi, wheezes Cardiovascular exam: PRESENT: RRR. ABSENT: diastolic murmur, rubs, systolic murmur Extremities exam: PRESENT: full ROM. ABSENT: calf tenderness, clubbing, pedal edema Neurological exam: PRESENT: alert, awake, oriented to person, oriented to place, oriented to time, oriented to situation, CN II-XII grossly intact. ABSENT: motor sensory deficit Results Laboratory Results: 03/26/20 06:43 03/26/20 06:43 03/26/20 03/26/20 06:43 06:43 WBC 6.0 RBC 5.01 Hgb 15.1 Hct 43.8 MCV 88 MCH 30.1 MCHC 34.4 RDW 13.7 Plt Count 255 Seg Neutrophils % 87.2 H Sodium 141.1 Potassium 4.2 Chloride 107 Carbon Dioxide 26 Anion Gap 8 BUN 14 Creatinine 0.70 Est GFR ( Amer) > 60 Glucose 131 H Calcium 7.8 L Total Bilirubin 0.5 AST 43 Alkaline Phosphatase 36 L Total Protein 5.9 L Albumin 3.0 L 03/23/20 03/23/20 03/24/20 13:42 13:42 13:00 Creatine Kinase 1414 H 2115 H Troponin I < 0.012 Impressions: Chest X-Ray 03/23/20 11:45 IMPRESSION: Bilateral airspace disease consistent with the given history of COVID-19. Assessment and Plan - Diagnosis (1) Acute respiratory failure with hypoxia Is this a current diagnosis for this admission?: Yes Plan: Moderate improvement. Most likely to underlying COVID-19 infection. Patient may have underlying lung disease due to history of vaping. Afebrile, SPO2 WNL on 3 L nasal cannula. ABG shows mild improvement of hypoxemia. Due 4 IV antibiotics. Day 4 IV ceftriaxone. Day 4 IV azithromycin. Day 4 p.o. steroids. Day 3 IV remdesivir. Continue PRN BiPAP, scheduled duo nebs, incentive spirometry, flutter valve, empiric broad-spectrum IV antibiotics, anticoagulation, steroids, pulmonary toileting, sputum and blood culture. (2) Pneumonia due to COVID-19 virus Is this a current diagnosis for this admission?: Yes Plan: As per above. (3) Rhabdomyolysis due to COVID-19 Is this a current diagnosis for this admission?: Yes Plan: Denies any history of recreational drug abuse. Positive for COVID-19 infection. Urine drug tox pending. Volume restriction guided by volume status. CK level tomorrow. - Time Time Spent with patient: 25-34 minutes Smoking Cessation Education: 3 to 10 minutes Medications reviewed and adjusted accordingly: Yes Anticipated Discharge Disposition: Home with Home Health Anticipated Discharge Timeframe: within 72 hours
[2020-03-26] MEDS: CEFTRIAXONE 1 GM/D5W RTU 1 GM/50 ML RTUPB IV SCH (17:37)
[2020-03-26] MEDS: AZITHROMYCIN 500 MG in DEXTROSE 5%-WATER 250 ML IV SCH (22:32)
[2020-03-27] MEDS: DEXAMETHASONE 4 MG TABLET PO SCH ×3 (05:14→22:59)
[2020-03-27] MEDS: FAMOTIDINE INJ/PF 20 MG/2 ML SDV IV SCH ×2 (10:07→23:00)
[2020-03-27] MEDS: REMDESIVIR (EUA) 100 MG in NORMAL SALINE 250 ML IV SCH (10:07)
[2020-03-27] MEDS: ZINC SULFATE 220 MG CAPSULE PO SCH (10:08)
[2020-03-27] MEDS: ASCORBIC ACID 500 MG TABLET PO SCH ×2 (10:08→18:09)
[2020-03-27] MEDS: ENOXAPARIN SODIUM INJ 80 MG/0.8 ML DISP.SYRIN SUBCUT SCH ×2 (10:08→23:00)
[2020-03-27] MEDS: GUAIFENESIN 600 MG TABLET.SA PO SCH ×2 (10:08→22:59)
[2020-03-27] MEDS: GUAIFENESIN SYRP 200 MG/10 ML UDC PO PRN (10:16)
--- NOTE | 2020-03-27 11:27 | PDOC PROGRESS REPORT ---
Subjective Progress Note for:: 03/27/20 Subjective:: CHALINO KRUEGER is a 30 year old male no significant past medical history, who has a vaping shop and also vaping himself, presenting to ED complaining of worsening shortness of breath. Patient is stating that about 10 days ago he was febrile and thought he had COVID-19 and he started isolating himself, as his symptoms did not improve he called [facility] and he was instructed to get tested for COVID-19. Patient got tested for COVID-19 3 days ago which came back positive yesterday. Patient complaining of worsening shortness of breath, associated with loss of smell and loss of taste, low appetite, nonproductive cough, pleuritic chest pain, and subjective fever, nonbloody diarrhea, denies any headache, focal neurological symptoms urinary symptoms. In ED chest x-ray was positive for COVID-19 findings, D-dimer mildly elevated, severely elevated ferritin, LDH, CRP and CK. Normal troponin. An ABG was attempted but turned out to be a VBG with pH of 7.34, PCO2 48.6, PO2 23.4. 03/24/2020. Moderate improvement of subdural associated, still having loss of smell and diarrhea, shortness of breath improving, denies any fever, chills, nausea, vomiting, constipation or any urinary symptoms. 03/25/2020. No acute events overnight, patient reported having of night, could not get a good sleep, normal catheter sitting ability of the bed seems to be normal respiratory distress, cannot talk in full sentences, denies any fever, chills, nausea still having diarrhea, denies any chest pain, abdominal pain or any urinary symptoms. 03/26/2020. No acute events overnight. Patient is reporting mild improvement of his symptoms, however still feels short of breath and having persistent cough, speaking full sentences, denies any fever, chills, nausea, vomiting. Diarrhea has resolved. 03/27/2020. No acute events overnight. No significant improvement of respiratory symptoms, patient does not like to use DuoNeb stating that it makes him more shortness of breath, overall he is feeling pretty much the same as yesterday, still tachypneic shallow breathing, denies any fever, chills, nausea, vomiting, diarrhea, constipation or any urinary symptoms. Reason For Visit: COVID-19, PNEUMONIA Physical Exam Vital Signs: Temp Pulse Resp BP Pulse Ox 97.6 F 52 L 35 H 100/60 95 03/27/20 08:11 03/27/20 08:11 03/27/20 08:11 03/27/20 08:11 03/27/20 08:11 Intake & Output 03/26/20 03/27/20 03/28/20 06:59 06:59 06:59 Intake Total 1850 1270 Output Total 1150 1400 Balance 700 -130 Weight 76.2 kg 74.8 kg General appearance: PRESENT: no acute distress, mild distress, well-developed, well-nourished Head exam: PRESENT: atraumatic, normocephalic Respiratory exam: PRESENT: clear to auscultation jensen, tachypnea, other - Shallow breathing. ABSENT: rales, rhonchi, wheezes Cardiovascular exam: PRESENT: RRR. ABSENT: diastolic murmur, rubs, systolic murmur GI/Abdominal exam: PRESENT: normal bowel sounds, soft. ABSENT: distended, guarding, mass, organolmegaly, rebound, tenderness Neurological exam: PRESENT: alert, awake, oriented to person, oriented to place, oriented to time, oriented to situation, CN II-XII grossly intact. ABSENT: motor sensory deficit Results Laboratory Results: 03/26/20 06:43 03/26/20 06:43 03/23/20 03/23/20 03/24/20 13:42 13:42 13:00 Creatine Kinase 1414 H 2115 H Troponin I < 0.012 Impressions: Chest X-Ray 03/23/20 11:45 IMPRESSION: Bilateral airspace disease consistent with the given history of COVID-19. Assessment and Plan - Diagnosis (1) Acute respiratory failure with hypoxia Is this a current diagnosis for this admission?: Yes Plan: No significant improvement compared to yesterday. SPO2 WNL on 4 to 5 L nasal cannula. Most likely to underlying COVID-19 infection. Patient may have underlying lung disease due to history of vaping. Due 5 IV antibiotics. Day 5 IV ceftriaxone. Day 5 IV azithromycin. Day 5 p.o. steroids. Day 3 IV remdesivir. Continue PRN BiPAP, scheduled duo nebs, incentive spirometry, flutter valve, empiric broad-spectrum IV antibiotics, anticoagulation, steroids, pulmonary toileting, sputum and blood culture. (2) Pneumonia due to COVID-19 virus Is this a current diagnosis for this admission?: Yes Plan: As per above. (3) Rhabdomyolysis due to COVID-19 Is this a current diagnosis for this admission?: Yes Plan: Denies any history of recreational drug abuse. Positive for COVID-19 infection. Urine drug tox pending. Volume restriction guided by volume status. CK level tomorrow. - Time Time Spent with patient: 25-34 minutes Medications reviewed and adjusted accordingly: Yes Anticipated Discharge Disposition: Home, Self Care Anticipated Discharge Timeframe: within 48 hours
[2020-03-27] MEDS: CEFTRIAXONE 1 GM/D5W RTU 1 GM/50 ML RTUPB IV SCH (18:08)
[2020-03-27] MEDS: AZITHROMYCIN 500 MG in DEXTROSE 5%-WATER 250 ML IV SCH (23:00)
[2020-03-28] MEDS: DEXAMETHASONE 4 MG TABLET PO SCH ×2 (05:57→14:39)
[2020-03-28 06:45] LABS: HEMATOCRIT 45.8 % (37.9-51.0); HEMOGLOBIN 15.6 g/dL (13.5-17.0); MEAN CORPUSCULAR HEMOGLOBIN 29.8 pg (27.0-33.4); MEAN CORPUSCULAR HGB CONC 34.1 g/dL (32.0-36.0); MEAN CORPUSCULAR VOLUME 87 fl (80-97); PLATELET COUNT 314 10^3/uL (150-450); RED BLOOD COUNT 5.24 10^6/uL (4.35-5.55); RED CELL DISTRIBUTION WIDTH 13.3 % (11.5-14.0); WHITE BLOOD COUNT 4.7 10^3/uL (4.0-10.5)
[2020-03-28] MEDS: REMDESIVIR (EUA) 100 MG in NORMAL SALINE 250 ML IV SCH (10:18)
[2020-03-28] MEDS: ENOXAPARIN SODIUM INJ 80 MG/0.8 ML DISP.SYRIN SUBCUT SCH (10:19)
[2020-03-28] MEDS: ZINC SULFATE 220 MG CAPSULE PO SCH (10:19)
[2020-03-28] MEDS: FAMOTIDINE INJ/PF 20 MG/2 ML SDV IV SCH (10:19)
[2020-03-28] MEDS: GUAIFENESIN 600 MG TABLET.SA PO SCH (10:19)
[2020-03-28] MEDS: ASCORBIC ACID 500 MG TABLET PO SCH (10:19)
[2020-03-28 12:22] LABS: APPEARANCE,URINE CLEAR; BILIRUBIN,URINE NEGATIVE (NEGATIVE); COLOR,URINE YELLOW; GLUCOSE, URINE NEGATIVE (NEGATIVE); KETONES,URINE NEGATIVE (NEGATIVE); LEUKOCYTE ESTERASE,URINE NEGATIVE (NEGATIVE); NITRITE,URINE NEGATIVE (NEGATIVE); PROTEIN,URINE NEGATIVE (NEGATIVE); URINE SPECIFIC GRAVITY 1.016; UROBILINOGEN,URINE NEGATIVE mg/dL (<2.0)
[2020-03-28 17:06] VITALS: BP 103/61
--- NOTE | 2020-04-06 08:03 | PDOC DISCHARGE SUMMARY ---
Impression - Admit/DC Date/PCP Admission Date/Primary Care Provider: 03/23/20 16:45 Discharge Date: 03/28/20 - Discharge Diagnosis (1) Acute respiratory failure with hypoxia Is this a current diagnosis for this admission?: Yes (2) Pneumonia due to COVID-19 virus Is this a current diagnosis for this admission?: Yes (3) Rhabdomyolysis due to COVID-19 Is this a current diagnosis for this admission?: Yes - Additional Information Discharge Diet: As Tolerated Discharge Activity: Activity As Tolerated, Balance Activity w/Rest Prescriptions: Prednisone [Deltasone 20 mg Tablet] 20 mg PO BID 4 Days #8 tablet Albuterol Sulfate [Ventolin Hfa 8 gm Mdi] 2 puff IH Q4HP PRN 30 Days #1 inhaler PRN Reason: Home Medications: Albuterol Sulfate [Ventolin Hfa 8 gm Mdi] 2 puff IH Q4HP PRN 30 Days #1 inhaler 03/28/20 Prednisone [Deltasone 20 mg Tablet] 20 mg PO BID 4 Days #8 tablet 03/28/20 History of Present Illiness History of Present Illness: CHALINO KRUEGER is a 30 year old male no significant past medical history, who has a vaping shop and also vaping himself, presenting to ED complaining of worsening shortness of breath. Patient is stating that about 10 days ago he was febrile and thought he had COVID-19 and he started isolating himself, as his symptoms did not improve he called [facility] and he was instructed to get tested for COVID-19. Patient got tested for COVID-19 3 days ago which came back positive yesterday. Patient complaining of worsening shortness of breath, associated with loss of smell and loss of taste, low appetite, nonproductive cough, pleuritic chest pain, and subjective fever, nonbloody diarrhea, denies any headache, focal neurological symptoms urinary symptoms. In ED chest x-ray was positive for COVID-19 findings, D-dimer mildly elevated, severely elevated ferritin, LDH, CRP and CK. Normal troponin. An ABG was attempted but turned out to be a VBG with pH of 7.34, PCO2 48.6, PO2 23.4. Hospital Course Hospital Course: (1) Acute respiratory failure with hypoxia No significant improvement compared to yesterday. SPO2 WNL on 2-3 L nasal cannula. Most likely to underlying COVID-19 infection. Patient may have underlying lung disease due to history of vaping. Due 5 IV antibiotics. Day 5 IV ceftriaxone. Day 5 IV azithromycin. Day 5 p.o. steroids. Day 4 IV remdesivir. Continue PRN BiPAP, scheduled duo nebs, incentive spirometry, flutter valve, empiric broad-spectrum IV antibiotics, anticoagulation, steroids, pulmonary toileting, sputum and blood culture. Pt still hypoxic otherwise stable, but prefers to be discharged home with supplemental oxygen, as he does not want to incur a large medical bill for his stay. Pt was discharged on supplemental oxygen and advised to come to ED if his symptoms gets worse or does not improve. Pt voiced understanding. (2) Pneumonia due to COVID-19 virus As per above. (3) Rhabdomyolysis due to COVID-19 Denies any history of recreational drug abuse. Positive for COVID-19 infection. Urine drug tox pending. Volume restriction guided by volume status. CK level trended down. Physical Exam Vital Signs: Temp Pulse Resp BP Pulse Ox 97.7 F 51 L 17 103/61 97 03/28/20 16:06 03/28/20 16:06 03/28/20 16:06 03/28/20 16:06 03/28/20 16:06 General appearance: PRESENT: no acute distress, well-developed, well-nourished Head exam: PRESENT: atraumatic, normocephalic Respiratory exam: PRESENT: clear to auscultation jensen. ABSENT: rales, rhonchi, wheezes Cardiovascular exam: PRESENT: RRR. ABSENT: diastolic murmur, rubs, systolic murmur GI/Abdominal exam: PRESENT: normal bowel sounds, soft. ABSENT: distended, guarding, mass, organolmegaly, rebound, tenderness Neurological exam: PRESENT: alert, awake, oriented to person, oriented to place, oriented to time, oriented to situation, CN II-XII grossly intact. ABSENT: motor sensory deficit Results Laboratory Results: WBC 4.7 10^3/uL (4.0-10.5) 03/28/20 05:55 RBC 5.24 10^6/uL (4.35-5.55) 03/28/20 05:55 Hgb 15.6 g/dL (13.5-17.0) 03/28/20 05:55 Hct 45.8 % (37.9-51.0) 03/28/20 05:55 MCV 87 fl (80-97) 03/28/20 05:55 MCH 29.8 pg (27.0-33.4) 03/28/20 05:55 MCHC 34.1 g/dL (32.0-36.0) 03/28/20 05:55 RDW 13.3 % (11.5-14.0) 03/28/20 05:55 Plt Count 314 10^3/uL (150-450) 03/28/20 05:55 Lymph % (Auto) 8.2 % (13-45) L 03/26/20 06:43 [place] % (Auto) 4.5 % (3-13) 03/26/20 06:43 Eos % (Auto) 0.0 % (0-6) 03/26/20 06:43 Baso % (Auto) 0.1 % (0-2) 03/26/20 06:43 Absolute Neuts (auto) 5.2 10^3/uL (1.7-8.2) 03/26/20 06:43 Absolute Lymphs (auto) 0.5 10^3/uL (0.5-4.7) 03/26/20 06:43 Absolute Monos (auto) 0.3 10^3/uL (0.1-1.4) 03/26/20 06:43 Absolute Eos (auto) 0.0 10^3/uL (0.0-0.6) 03/26/20 06:43 Absolute Basos (auto) 0.0 10^3/uL (0.0-0.2) 03/26/20 06:43 Seg Neutrophils % 87.2 % (42-78) H 03/26/20 06:43 PT 14.0 SEC (11.4-15.4) 03/26/20 06:43 INR 1.05 03/26/20 06:43 D-Dimer 0.63 ug/mL (0.00-0.50) H 03/25/20 14:05 Carbonic Acid 1.11 mmol/L (1.05-1.35) 03/25/20 06:30 HCO3/H2CO3 Ratio 20:1 03/25/20 06:30 ABG pH 7.42 (7.35-7.45) 03/25/20 06:30 ABG pCO2 36.8 mmHg (35-45) 03/25/20 06:30 ABG pO2 75.6 mmHg (80-100) L 03/25/20 06:30 ABG HCO3 23.1 mmol/L (20-24) 03/25/20 06:30 ABG Total CO2 24.2 mmol/L (23-27) 03/25/20 06:30 ABG O2 Saturation 95.4 % (94-98) 03/25/20 06:30 ABG Base Excess -1.0 mmol/L 03/25/20 06:30 FiO2 36% 03/25/20 06:30 Sodium 141.1 mmol/L (137-145) 03/26/20 06:43 Potassium 4.2 mmol/L (3.6-5.0) 03/26/20 06:43 Chloride 107 mmol/L (98-107) 03/26/20 06:43 Carbon Dioxide 26 mmol/L (22-30) 03/26/20 06:43 Anion Gap 8 (5-19) 03/26/20 06:43 BUN 14 mg/dL (7-20) 03/26/20 06:43 Creatinine 0.70 mg/dL (0.52-1.25) 03/26/20 06:43 Est GFR ( Amer) > 60 (>60) 03/26/20 06:43 Est GFR (MDRD) Non-Af > 60 (>60) 03/26/20 06:43 Glucose 131 mg/dL (75-110) H 03/26/20 06:43 Calcium 7.8 mg/dL (8.4-10.2) L 03/26/20 06:43 Magnesium 2.4 mg/dL (1.6-2.3) H 03/24/20 07:15 Ferritin 987.00 ng/mL (17.9-464.0) H 03/23/20 13:42 Total Bilirubin 0.5 mg/dL (0.2-1.3) 03/26/20 06:43 Direct Bilirubin 0.2 mg/dL (0.0-0.4) 03/26/20 06:43 Neonat Total Bilirubin Not Reportable 03/26/20 06:43 Neonat Direct Bilirubin Not Reportable 03/26/20 06:43 Neonat Indirect Bili Not Reportable 03/26/20 06:43 AST 43 U/L (17-59) 03/26/20 06:43 ALT 40 U/L (<50) 03/26/20 06:43 Alkaline Phosphatase 36 U/L (38-126) L 03/26/20 06:43 Lactate Dehydrogenase 617 U/L (120-246) H 03/23/20 13:42 Creatine Kinase 323 U/L (55-170) H 03/27/20 13:42 Troponin I < 0.012 ng/mL 03/23/20 13:42 C-Reactive Protein 53.7 mg/L (<10.0) H 03/23/20 13:42 Total Protein 5.9 g/dL (6.3-8.2) L 03/26/20 06:43 Albumin 3.0 g/dL (3.5-5.0) L 03/26/20 06:43 Urine Color YELLOW 03/28/20 11:20 Urine Appearance CLEAR 03/28/20 11:20 Urine pH 7.0 (5.0-9.0) 03/28/20 11:20 Ur Specific [place] 1.016 03/28/20 11:20 Urine Protein NEGATIVE mg/dL (NEGATIVE) 03/28/20 11:20 Urine Glucose (UA) NEGATIVE mg/dL (NEGATIVE) 03/28/20 11:20 Urine Ketones NEGATIVE mg/dL (NEGATIVE) 03/28/20 11:20 Urine Blood NEGATIVE (NEGATIVE) 03/28/20 11:20 Urine Nitrite NEGATIVE (NEGATIVE) 03/28/20 11:20 Urine Bilirubin NEGATIVE (NEGATIVE) 03/28/20 11:20 Urine Urobilinogen NEGATIVE mg/dL (<2.0) 03/28/20 11:20 Ur Leukocyte Esterase NEGATIVE (NEGATIVE) 03/28/20 11:20 Urine WBC (Auto) 0 /HPF 03/28/20 11:20 Urine RBC (Auto) 0 /HPF 03/28/20 11:20 Squamous Epi Cells Auto 1 /HPF 03/28/20 11:20 Urine Mucus (Auto) RARE /LPF 03/28/20 11:20 Urine Ascorbic Acid NEGATIVE (NEGATIVE) 03/28/20 11:20 Urine Opiates Screen NEGATIVE 03/24/20 13:00 Urine Methadone Screen NEGATIVE 03/24/20 13:00 Ur Barbiturates Screen NEGATIVE 03/24/20 13:00 Ur Phencyclidine Scrn NEGATIVE 03/24/20 13:00 Ur Amphetamines Screen NEGATIVE 03/24/20 13:00 U Benzodiazepines Scrn NEGATIVE 03/24/20 13:00 Urine Cocaine Screen NEGATIVE 03/24/20 13:00 U Marijuana (THC) Screen NEGATIVE 03/24/20 13:00 03/23/20 13:42 Troponin I < 0.012 Impressions: Chest X-Ray 03/23/20 11:45 IMPRESSION: Bilateral airspace disease consistent with the given history of COVID-19. Stroke Is this a Stroke Patient?: No Acute Heart Failure Is this a Heart Failure Patient?: No
== END 2020-03-28 17:24 | disposition home or self-care (01) | DRG 177 ==
LOC: ER 10:22 → EH 16:45 → 3N 20:40
PROVIDERS: ADMIT Internal Medicine; ATTEND Internal Medicine
PROC: XW033E5 Introduction of Remdesivir Anti-infective into Peripheral Vein, Percutaneous Approach, New Technology Group 5 (ICD-10-PCS; principal; 2020-03-24)
DX: U07.1 COVID-19 (principal); J96.01 Acute respiratory failure with hypoxia; J12.89 Other viral pneumonia; M62.82 Rhabdomyolysis; R82.1 Myoglobinuria
CPT/HCPCS: 36415; 36600; 71045; 80053; 80307; 81001; 82550; 82728; 82803; 83615; 83735; 84484; 85025; 85027; 85379; 85610; 86140; 87040; 93005; 93010; 94640; 94667; 94668; 94799; 99285; J0610; J0456; J0696; J1650; J3490; J7030; J7050; J7060; J7120; J8540; S0028

== ENCOUNTER → 2020-05-16 | Outpatient (CLI) | payer SELFPAY ==
--- NOTE | 2020-05-16 15:26 | RADIOLOGY REPORT (SQ) ---
EXAM DESCRIPTION: CHEST 2 VIEWS IMAGES COMPLETED DATE/TIME: 05/16/2020 3:13 pm REASON FOR STUDY: J18.9 PNEUMONIA, UNSPECIFIED ORGANISM COMPARISON: 03/23/2020 EXAM PARAMETERS: NUMBER OF VIEWS: two views TECHNIQUE: Digital Frontal and Lateral radiographic views of the chest acquired. RADIATION DOSE: NA LIMITATIONS: none FINDINGS: LUNGS AND PLEURA: No opacities, masses or pneumothorax. No pleural effusion. MEDIASTINUM AND HILAR STRUCTURES: No masses or contour abnormalities. HEART AND VASCULAR STRUCTURES: Heart normal size. No evidence for failure. BONES: No acute findings. HARDWARE: None in the chest. OTHER: No other significant finding. IMPRESSION: NO ACUTE RADIOGRAPHIC FINDING IN THE CHEST. TECHNICAL DOCUMENTATION: JOB ID: [id number] [employer]- All Rights Reserved Reading location - IP/workstation name: [email or web address]
== END ==
LOC: RAD 15:00
PROVIDERS: ATTEND Internal Medicine Pulmonary Disease
DX: J18.9 Pneumonia, unspecified organism (principal)
CPT/HCPCS: 71046